=== PATIENT | female | born 1975 | race Caucasian/White ===

== ENCOUNTER 2018-09-28 11:25 | Observation (INO) ==
[2018-09-28] MEDS ORDERED: Aspirin 81 MG TAB.CHEW PO STA (11:33)
[2018-09-28] MEDS ORDERED: Nitroglycerin 0.4 MG TAB.SUBL SL PRN ×2 (11:33→14:18)
--- NOTE | 2018-09-28 11:34 | Emergency Department Note ---
Disposition Clinical Impression: Chest pain Disposition: Admitted As Inpatient Condition: Good Chest Pain HPI - General Chief Complaint: ED Chest Pain Stated Complaint: CHEST PAIN Time Seen by Provider: 09/28/18 11:25 Source: patient Mode of arrival: ambulatory Limitations: no limitations Vital Signs Reviewed: Yes Nursing Notes Reviewed: Yes - History of Present Illness HPI Narrative: Patient presents emerge department with chest pain since 5:30 yesterday. She says with the shower and developed some sharp chest pain and left chest for just a second or 2 and then it went away and this dull ache since that time. She denies any radiation of pain it stays right in her left chest. He said no nausea vomiting shortness of breath or other complaints admitted to at this point. Couple of years ago she had the same thing happened and it went away. Onset (ago): day(s) (2) Duration: constant Pain Location: substernal, left chest Quality: aching Pain Radiation: none Improves with: nothing Worsens with: nothing Associated symptoms: Denies: nausea, vomiting, diaphoresis, dyspnea, sense of impending doom, syncope, palpitations, fever, cough, leg swelling - Related Data Home Medications Medication Instructions Recorded Confirmed Ferrous Sulfate [Iron] 325 mg PO BID 09/28/18 09/28/18 Lisinopril [Zestril] 20 mg PO DAILY 09/28/18 09/28/18 Allergies Allergy/AdvReac Type Severity Reaction Status Date / Time No Known Allergies Allergy Verified 09/28/18 11:27 All systems ED: reviewed and negative except as stated. Review of Systems: As Per HPI Constitutional: Denies: fever, chills, weakness, weight change Eyes: Denies: eye pain, eye discharge, vision change ENT ED: Denies: ear pain, throat pain, dental pain, hearing loss, epistaxis, congestion, dysphagia Cardiovascular: Reports: as per HPI, chest pain Respiratory: Denies: cough, dyspnea, wheezes, hemoptysis, stridor Gastrointestinal: Denies: abdominal pain, nausea, vomiting, diarrhea, constipation, hematemesis, melena, hematochezia Genitourinary: Reports: as per HPI Musculoskeletal: Denies: back pain, neck pain, arthralgia, myalgia Integumentary: Denies: rash, abrasion, lesions Neurological: Denies: headache, weakness, numbness, paresthesias, confusion, abnormal gait, vertigo Endocrine: Denies: fatigue Hematological/Lymphatic: Denies: easy bleeding, easy bruising Allergic/Immunologic: Denies: facial swelling, urticaria Physical Exam - General Limitations: no limitations General appearance: alert, in no apparent distress - Head Head exam: atraumatic, normocephalic, normal inspection - Eye Eye exam: Present: normal appearance, PERRL, EOMI - ENT ENT exam: normal exam, normal oropharynx, mucous membranes moist - Neck Neck exam: Present: normal inspection, full ROM, trachea midline - Chest Chest inspection: Present: normal inspection, symmetric chest wall rise - Respiratory Respiratory exam: Present: normal lung sounds bilaterally - Cardiovascular Cardiovascular exam: Present: regular rate, normal rhythm, normal heart sounds - Abdominal Exam Abdominal exam: Present: soft - Extremities Exam Extremities exam: Present: normal inspection, full ROM. Absent: tenderness, pedal edema - Back Exam Back exam: Present: normal inspection, full ROM. Absent: tenderness - Neurological Exam Neurological exam: Present: alert, oriented X3 - Psychiatric Psychiatric exam: Present: normal affect, normal mood - Skin Skin exam: Present: warm, intact Course Vital Signs Temperature 98.9 F 09/28/18 11:29 Pulse Rate 87 09/28/18 11:29 Respiratory Rate 16 09/28/18 11:29 Blood Pressure 153/88 09/28/18 11:29 O2 Sat by Pulse Oximetry 97 09/28/18 11:29 Temperature 98.9 F 09/28/18 11:29 Pulse Rate 72 09/28/18 13:09 Respiratory Rate 16 09/28/18 14:18 Blood Pressure 156/93 09/28/18 14:18 O2 Sat by Pulse Oximetry 100 09/28/18 13:09 Oxygen Delivery Oxygen Delivery Room Air Chest Pain - MDM Narrative Medical decision making narrative: I reviewed the patient's medication list Case was discussed with Dr. Cobos's graciously accepted admission to the hospital - Lab Data Lab results reviewed: Yes I reviewed the patient's lab results. Result diagrams: 09/28/18 11:57 09/28/18 11:57 Lab Results 09/28/18 09/28/18 Range/Units 11:57 11:57 WBC 6.7 (4.3-11.1) K/mcL RBC 4.26 (3.82-4.97) M/mcL Hgb 13.6 (11.5-15.4) g/dL Hct 39.8 (35.3-44.9) % MCV 93.4 (83.0-100.0) fL MCH 31.9 (28.0-33.3) pg MCHC 34.2 (31.6-35.5) g/dL RDW 13.1 (11.5-14.5) % Plt Count 252 (140-400) K/mcL MPV 11.7 (9.4-12.4) fL Immature Gran % 0.3 (0-4) % Seg Neutrophils % 62.3 % Lymphocytes % 24.7 % Monocytes % 8.2 % Eosinophils % 3.0 % Basophils % 1.5 % Neutrophils # 4.2 (1.6-8.9) K/mcL Lymphocytes # 1.7 (0.6-4.6) K/mcL Monocytes # 0.6 (0.0-1.3) K/mcL Eosinophils # 0.2 (0.0-0.6) K/mcL Basophils # 0.1 (0.0-0.2) K/mcL Sodium 138 (136-145) mEq/L Potassium 4.5 (3.5-5.1) mEq/L Chloride 107 (98-107) mEq/L Carbon Dioxide 26 (23-29) mEq/L BUN 13 (6-20) mg/dL Creatinine 0.68 (0.60-1.20) mg/dL Est GFR ( Amer) > 60 (> 60) Est GFR (Non-Af Amer) > 60 (> 60) BUN/Creatinine Ratio 19 (6-26) Glucose 95 (70-105) mg/dL Calculated Osmolality 286 (280-300) Calcium 10.1 (8.6-10.3) mg/dL Total Bilirubin 0.3 (0.3-1.0) mg/dL AST 44 H (13-39) Units/L ALT 39 (7-52) Units/L Alkaline Phosphatase 51 (34-104) Units/L Troponin I < 0.03 (< 0.04) ng/mL Serum Total Protein 6.8 (6.4-8.9) g/dL Albumin 4.2 (3.5-5.7) g/dL Globulin 2.6 (2.4-3.5) g/dL Albumin/Globulin Ratio 1.6 (1.1-2.2) - Radiology Data Radiology results reviewed: Yes I reviewed the patient's radiology results. - EKG Data EKG attestation: Yes I reviewed and interpreted this EKG. EKG results narrative: EKG shows rate of 81 bpm. Interval of 120 ms QRS duration 82 ms QT interval 394 QTc interval 4 ms QRS axis of [address] elevation
[2018-09-28] MEDS ORDERED: 0.9 % Sodium Chloride 1,000 ML IVC SCH ×3 (11:45→14:18)
[2018-09-28 12:17] LABS: Basophils # 0.1 K/mcL (0.0-0.2); Basophils % 1.5 %; Eosinophils # 0.2 K/mcL (0.0-0.6); Hematocrit 39.8 % (35.3-44.9); Hemoglobin 13.6 g/dL (11.5-15.4); Immature Granulocytes % 0.3 % (0-4); Lymphocytes # 1.7 K/mcL (0.6-4.6); Lymphocytes % 24.7 %; Mean Corpuscular HGB Conc 34.2 g/dL (31.6-35.5); Mean Corpuscular Hemoglobin 31.9 pg (28.0-33.3); Mean Corpuscular Volume 93.4 fL (83.0-100.0); Mean Platelet Volume 11.7 fL (9.4-12.4); Monocytes # 0.6 K/mcL (0.0-1.3); Monocytes % 8.2 %; Neutrophils # 4.2 K/mcL (1.6-8.9); Platelet Count 252 K/mcL (140-400); Red Blood Count 4.26 M/mcL (3.82-4.97); Red Cell Distribution Width 13.1 % (11.5-14.5); Segmented Neutrophils % 62.3 %
[2018-09-28 12:30] LABS: Alanine Aminotransferase 39 Units/L (7-52); Albumin 4.2 g/dL (3.5-5.7); Albumin/Globulin Ratio 1.6 (1.1-2.2); Alkaline Phosphatase 51 Units/L (34-104); Aspartate Amino Transferase 44 Units/L (13-39); BUN/Creatinine Ratio 19 (6-26); Bilirubin,Total 0.3 mg/dL (0.3-1.0); Blood Urea Nitrogen 13 mg/dL (6-20); Calcium 10.1 mg/dL (8.6-10.3); Carbon Dioxide 26 mEq/L (23-29); Chloride 107 mEq/L (98-107); Globulin 2.6 g/dL (2.4-3.5); Glucose 95 mg/dL (70-105); Osmolality,Calculated 286 (280-300); Potassium 4.5 mEq/L (3.5-5.1); Sodium 138 mEq/L (136-145); Total Protein 6.8 g/dL (6.4-8.9); Troponin I < 0.03 ng/mL (< 0.04); eGFR For Non-African Americans > 60 (> 60)
[2018-09-28] MEDS ORDERED: Naloxone 0.4 MG/ML INJ IVP PRN (14:18)
[2018-09-28] MEDS ORDERED: Acetaminophen 325 MG TABLET PO PRN (14:50)
--- NOTE | 2018-09-28 17:15 | Internal Med History&Physical ---
Date of Encounter: 09/28/18 Time of Encounter: 16:35 Assessment and Plan (1) Chest pain Current visit: Yes Status: Acute Doubt myocardial ischemic origin from history and physical. D-dimer will be ordered since multiple family members have history of unprovoked DVTs. Qualifiers: Chest pain type: unspecified Qualified Code(s): R07.9 - Chest pain, unspecified (2) Hypertension Current visit: Yes Status: Chronic Continue lisinopril and monitor blood pressure. 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 Internal Medicine - H&P: HPI Chief complaint: Chest pain Admitted From: Emergency Dept Plans for Post Hospital Care: Home History of present illness: Ms. Johnston is a 43 year old female who came to emergency room stating she had sudden onset of sharp midsternal chest pain the afternoon of September 27 after she had gotten home from usual work duties and was taking a shower. She denies cough or dyspnea. The sharp sensation lasted approximately 5 minutes. She took aspirin 325 mg and lay down. When she awakened today the pain had lessened and was now dull in nature. The intensity level had decreased from 10/10 at time of onset to 5/10 this morning. 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 She was admitted to [facility] floor for ongoing care needs. She states the pain is presently 5/10 level. She reports a previous similar episode approximately 3 years ago without definite diagnosis made. Cardiovascular history is significant for hypertension but she denies [place] heart failure angina DVT or pulmonary embolus. Family history is pertinent for her grandmother, sister, and nephew having unprovoked DVTs. Past Med Surg Social Fam HX - Past Medical History Medical history: hypertension, other Additional medical history: FATTY LIVER DISEASE, "LIMP GIRDLE DZ" -FORM OF MD., ANEMIA, hypothyroid Psychiatric history: depression - Past Surgical History Additional surgical history: tubal, colonoscopy, wisdom teeth - Social History Smoking Status: Former smoker Smokeless Tobacco Status: No Alcohol use: none Drug use: none - Family History Mother Maternal Adopted: No Age: 70 Living Status: Still Living Hx Family Endocrine Disorder: Yes (had thyroid removed) Sister Maternal History Unknown: Yes Adopted: No Age: 45 Living Status: Still Living Hx Family Endocrine Disorder: Yes (had thyroid removed) Maternal Grandmother Adopted: No Age: 88 Living Status: Still Living Hx Family Endocrine Disorder: Yes (thyroid cancer, thyroid removed) Hx Family Medical Disorders: Yes (blood clots in past) Internal Medicine - H&P: Meds Ferrous Sulfate [Iron] 325 mg PO BID 09/28/18 [History] Lisinopril [Zestril] 20 mg PO DAILY 09/28/18 [History] Allergy/AdvReac Type Severity Reaction Status Date / Time No Known Allergies Allergy Verified 09/28/18 11:27 All Systems PM: A 10-system review of systems was performed and is negative for pertinent findings except as documented above in the HPI. Review of systems: Gen.: She states her weight has been stable for several months Cardiovascular: As per history of present illness Respiratory: She smoked for approximately 5 years in early adulthood. She denies chronic lung disease GI: She has been diagnosed with NAFLD. She reports unremarkable EGD and colonoscopy 2012. She denies other disorders of her liver gallbladder or exocrine pancreas. : She has had hematuria in the past with etiology not determined. She denies other kidney or bladder disorders. Neurologic: She has occasional migraine headaches. She denies large distribution strokes, seizures, or syncope. Endocrine: She has history of thyroid nodules without intervention to date. She denies diabetes or hyperlipidemia. Hematology/oncology: She has had anemia with iron deficiency in the past and presently takes ferrous sulfate. She denies internal malignancies. Psychiatric: She has had depression but does not take medication at present. She denies other mental health diagnosis. [place] skeletal: She has been diagnosed with limb girdle muscular dystrophy and follows at [facility] on periodic basis. She denies other bone joint or muscle disorders. She reports she has had pain in her knees on climbing steps for several months. - Constitutional Vitals: Temp Pulse Resp BP Pulse Ox 98.0 F 69 14 124/80 100 09/28/18 14:45 09/28/18 14:45 09/28/18 14:45 09/28/18 14:45 09/28/18 14:45 Exam: Gen.: She is well-developed well-nourished female resting comfortably in bed who appears in no acute distress at present time HEENT: Head is atraumatic and normocephalic. Eyes: EOMI. There is no scleral icterus. Mouth: Mucosa is moist. Neck: Supple and nontender. There is no thyromegaly or adenopathy noted. Heart: Regular without murmurs gallops or ectopics Chest: She has tenderness in her costosternal joints to compression but states "that is not the pain". Abdomen: Soft and nontender. No masses or guarding are noted. Extremities: There is no cyanosis edema or clubbing noted. Homans sign is negative bilaterally. Dorsalis pedis and posterior tibial pulses are 1-2 over 2 bilaterally. Neurologic: Mental status: She is talkative and a good historian. Cranial nerves: Smile is symmetric. Forehead wrinkles bilaterally. Tongue protrudes midline. EOMI. Motor: There is no pronator drift. Cerebellar: Finger to nose is intact bilaterally. Skin: Warm and dry Internal Med - H&P Results - Labs CBC & Chem 7: 09/28/18 11:57 09/28/18 11:57 Labs: Short CBC 09/28/18 Range/Units 11:57 WBC 6.7 (4.3-11.1) K/mcL Hgb 13.6 (11.5-15.4) g/dL Hct 39.8 (35.3-44.9) % Plt Count 252 (140-400) K/mcL Neutrophils # 4.2 (1.6-8.9) K/mcL BMP 09/28/18 11:57 Sodium 138 Potassium 4.5 Chloride 107 Carbon Dioxide 26 BUN 13 Creatinine 0.68 Glucose 95 Calcium 10.1 Cardiac Enzymes 09/28/18 Range/Units 11:57 Troponin I < 0.03 (< 0.04) ng/mL Liver Function 09/28/18 Range/Units 11:57 Total Bilirubin 0.3 (0.3-1.0) mg/dL AST 44 H (13-39) Units/L ALT 39 (7-52) Units/L Alkaline Phosphatase 51 (34-104) Units/L Albumin 4.2 (3.5-5.7) g/dL - Impressions ITS Impressions Chest X-Ray 09/28/18 11:33 IMPRESSION: No radiographic evidence of acute cardiopulmonary disease. D/ / Emmett Ayon / Emmett Ayon Interpreting Provider: Emmett Ayon
[2018-09-28 17:25] LABS: Bilirubin,Urine Negative (Negative); Blood,Urine Trace-lysed (Negative); Clarity,Urine Clear (Clear); Color,Urine Yellow (Yellow); Glucose,Urine (UA) Normal (Normal); Ketones,Urine Negative (Negative); Leukocyte Esterase,Urine Negative (Negative); Nitrite,Urine Negative (Negative); Protein,Urine Negative (Neg-Trace); Specific Gravity,Urine >= 1.030 (1.010-1.025); Urobilinogen,Urine Normal (Normal)
[2018-09-28 17:35] LABS: Mucus,Urine Few (Few); RBC,Urine 0-3 per hpf (0-3); Squamous Epithelial Cell,Urine Few per lpf (None-Few); WBC,Urine 0-3 per hpf (0-3)
[2018-09-28] MEDS: Ibuprofen 600 MG TABLET PO PRN (18:58)
[2018-09-29] MEDS: Ibuprofen 600 MG TABLET PO PRN ×2 (02:08→08:46)
[2018-09-29] MEDS ORDERED: *HR* OxyCODONE/APAP 5/325 TABLET PO PRN (05:29)
[2018-09-29 06:19] LABS: Basophils # 0.1 K/mcL (0.0-0.2); Basophils % 1.5 %; Eosinophils # 0.3 K/mcL (0.0-0.6); Eosinophils % 5.5 %; Hematocrit 39.8 % (35.3-44.9); Hemoglobin 13.4 g/dL (11.5-15.4); Immature Granulocytes % 0.2 % (0-4); Lymphocytes # 1.7 K/mcL (0.6-4.6); Lymphocytes % 31.8 %; Mean Corpuscular HGB Conc 33.7 g/dL (31.6-35.5); Mean Corpuscular Hemoglobin 31.5 pg (28.0-33.3); Mean Corpuscular Volume 93.6 fL (83.0-100.0); Mean Platelet Volume 11.5 fL (9.4-12.4); Monocytes # 0.4 K/mcL (0.0-1.3); Monocytes % 7.9 %; Neutrophils # 2.8 K/mcL (1.6-8.9); Platelet Count 222 K/mcL (140-400); Red Blood Count 4.25 M/mcL (3.82-4.97); Red Cell Distribution Width 13.1 % (11.5-14.5); Segmented Neutrophils % 53.1 %
[2018-09-29 06:53] LABS: BUN/Creatinine Ratio 21 (6-26); Blood Urea Nitrogen 12 mg/dL (6-20); Calcium 9.5 mg/dL (8.6-10.3); Carbon Dioxide 25 mEq/L (23-29); Chloride 108 mEq/L (98-107); Glucose 101 mg/dL (70-105); Osmolality,Calculated 286 (280-300); Potassium 4.2 mEq/L (3.5-5.1); Sodium 138 mEq/L (136-145); eGFR For Non-African Americans > 60 (> 60)
[2018-09-29] MEDS ORDERED: Lisinopril 20 MG TABLET PO SCH (09:00)
--- NOTE | 2018-09-29 09:12 | Discharge Summary ---
Date of Encounter: 09/29/18 Time of Encounter: 09:00 - Discharge Diagnosis (1) Chest pain Priority: Primary Status: Acute Qualifiers: Chest pain type: unspecified Qualified Code(s): R07.9 - Chest pain, unspecified (2) Hypertension Priority: Secondary Status: Chronic Qualifiers: Hypertension type: essential hypertension Qualified Code(s): I10 - Essential (primary) hypertension (3) Limb-girdle muscular dystrophy Priority: Secondary Status: Chronic (4) Thyroid nodule Priority: Secondary Status: Chronic Hospital course: Ms. Johnston is a 43 year old female who came to emergency room stating she had sudden onset of sharp midsternal chest pain the afternoon of September 27 after she had gotten home from usual work duties and was taking a shower. She denies cough or dyspnea. The sharp sensation lasted approximately 5 minutes. She took aspirin 325 mg and lay down. When she awakened today the pain had lessened and was now dull in nature. The intensity level had decreased from 10/10 at time of onset to 5/10 this morning. 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 She was admitted to [facility] for ongoing care needs. Initial orders were written by the emergency room physician. I saw her on September 28 performed a history and physical. Repeat cardiac enzymes showed no evidence of myocardial damage. D-dimer returned < 215 effectively excluding pulmonary embolism. When I saw her I did not think they most likely be of myocardial ischemic origin. The etiology of the pain was not determined with certainty. When I saw her the morning of September 29 she felt improved and stable for discharge home. She will follow with her PCP Dr. Ralph Teixeira within 1 week. - Time Spent with Patient Total time spent providing and/or coordinating discharge services: - Discharge Medications Home Medications: Ferrous Sulfate [Iron] 325 mg PO BID 09/28/18 [History] Lisinopril [Zestril] 20 mg PO DAILY 09/28/18 [History] Allergies/Adverse Reactions: Allergy/AdvReac Type Severity Reaction Status Date / Time No Known Allergies Allergy Verified 09/28/18 11:27 Date of admission: 09/28/18 13:43 Primary care physician: Emmett Teixeira - Constitutional Vitals: Temp Pulse Resp BP Pulse Ox 98.0 F 70 16 107/57 97 09/29/18 07:15 09/29/18 07:15 09/29/18 07:15 09/29/18 07:15 09/29/18 07:15 - Patient Status Disposition: Home, Self-Care Condition: Good - Discharge Instructions Follow Up With: Emmett Teixeira, [Primary Care Provider] - 1 week - Diet and Activity Activity: resume usual activities as tolerated Diet: advance to your usual diet
[2018-09-29 09:15] VITALS: BP 110/60
--- NOTE | 2018-09-30 16:04 | Electrocardiograph Report ---
[place] [address] Test Date: 2018-09-28 Pat Name: Elis Johnston Department: ED-16 Room: [facility] Gender: F Iron Erector: : 1975 Requested By: Emmett Call Order Number: [id number] Reading MD: Ashley Ching Measurements Intervals [place] Rate: 81 P: 63 RI: 128 QRS: 42 QRSD: 82 T: 31 QT: 354 QTc: 411 Interpretive Statements Sinus rhythm Electronically Signed On 09-30-2018 16:02:37 EST by Ashley Ching
--- NOTE | 2018-09-30 16:59 | Electrocardiograph Report ---
[address] [address] Test Date: 2018-09-29 Pat Name: Elis Johnston Department: [id number] Room: [facility] Gender: F Secured Entrance Monitor: [id number] : 1975 Requested By: Emmett Call Order Number: [id number] Reading MD: Ashley Ching Measurements Intervals [place] Rate: 72 P: 53 WV: 163 QRS: 47 QRSD: 85 T: 15 QT: 367 QTc: 392 Interpretive Statements SINUS RHYTHM Electronically Signed On 09-30-2018 16:58:12 EST by Ashley Ching
== END 2018-09-29 10:00 | disposition home or self-care (01) ==
LOC: INPPIK 11:25 → EMEROOPIK 11:25 → INPPIK 14:00
PROVIDERS: ADMIT Internal Medicine; ATTEND Internal Medicine